=== PATIENT | female | born 1945 ===

== ENCOUNTER 2016-10-23 15:12 | Emergency (ER) | payer MEDICARE, MEDICAID ==
[2016-10-23 15:31] VITALS: BP 138/74; PULSE 82; TEMP 98.6
--- NOTE | 2016-10-23 15:45 | ED PDOC ---
Arrival/HPI - General Historian: Patient <Prisca Acharya A - Last Filed: 10/23/16 16:09> <Cornell Morales - Last Filed: 10/23/16 16:43> - General Chief Complaint: Hip Pain Time Seen by Provider: 10/23/16 15:24 - History of Present Illness Narrative History of Present Illness (Text): 10/23/16 15:42 71yo female with PMhx of hypertension, diabetes and hypercholestrol, right knee OA, present with complaint of right sided hip pain that radiates laterally to her lower leg x one week. the daughter by the bedside states patient was taking her regular 15mg Meloxicam without relieve. denies previous history of hip pain. denies trauma, saddle anesthesia, urinary/fecal incontinence, focal weakness, abdominal pain, urinary symptoms. (Prisca Acharya A) Past Medical History - Provider Review Nursing Documentation Reviewed: Yes - Cardiac Hx Hypertension: Yes - Pulmonary Hx Respiratory Disorders: No - Neurological Hx Neurological Disorder: No - HEENT Hx HEENT Disorder: No - Renal Hx Renal Disorder: No - Endocrine/Metabolic Hx Diabetes Mellitus Type 2: Yes Hx Hypothyroidism: Yes - Hematological/Oncological Hx Blood Disorders: No - Integumentary Hx Dermatological Disorder: No - Musculoskeletal/Rheumatological Hx Arthritis: Yes - Gastrointestinal Hx Gastrointestinal Disorders: No - Genitourinary/Gynecological Hx Genitourinary Disorders: No - Psychiatric Hx Psychophysiologic Disorder: No Hx Substance Use: No - Surgical History Other/Comment: CARDIAC CATH <Prisca Acharya - Last Filed: 10/23/16 16:09> Family/Social History - Physician Review Nursing Documentation Reviewed: Yes Family/Social History: Unknown Family HX Smoking Status: Never Smoked Hx Alcohol Use: Yes Frequency of alcohol use: Socially Hx Substance Use: No <Prisca Acharya - Last Filed: 10/23/16 16:09> Allergies/Home Meds <Prisca Acharya A - Last Filed: 10/23/16 16:09> <Cornell Morales - Last Filed: 10/23/16 16:43> Allergies/Adverse Reactions: Allergies No Known Allergies Allergy (Verified 10/23/16 15:21) Home Medications: Home Meds Medication Instructions Recorded Confirmed Cholecalciferol [Vitamin D 1000 IU] 1 tab PO DAILY 10/23/16 10/23/16 Glipizide [Glucotrol] 10 mg PO DAILY 10/23/16 10/23/16 Levocetirizine Dihydrochloride 5 mg PO DAILY 10/23/16 10/23/16 Levothyroxine [Synthroid] 150 mcg PO DAILY 10/23/16 10/23/16 Linagliptin [Tradjenta] 5 mg PO DAILY 10/23/16 10/23/16 Losartan [Cozaar] 25 mg PO DAILY 10/23/16 10/23/16 Meloxicam [Mobic] 15 mg PO DAILY 10/23/16 10/23/16 Timolol 0.25% Ophth [Timoptic 1 drop OD BID 10/23/16 10/23/16 0.25% Ophth Soln] Travoprost [Travatan Z] 1 drop OD BID 10/23/16 10/23/16 Review of Systems - Physician Review All systems were reviewed & negative as marked: Yes - Review of Systems Constitutional: Normal Eyes: Normal ENT: Normal Respiratory: Normal Cardiovascular: Normal Gastrointestinal: Normal Genitourinary Female: Normal Musculoskeletal: Arthralgias (Right hip pain) Skin: Normal Neurological: Normal Endocrine: Normal Hemo/Lymphatic: Normal Psychiatric: Normal <Diru,Happiness A - Last Filed: 10/23/16 16:09> Physical Exam Vital Signs Reviewed: Yes Temperature: Afebrile Blood Pressure: Normal Pulse: Regular Respiratory Rate: Normal Appearance: Positive for: Well-Appearing, Non-Toxic, Comfortable Pain Distress: None Mental Status: Positive for: Alert and Oriented X 3 - Systems Exam Head: Present: Atraumatic, Normocephalic Pupils: Present: PERRL Extroacular Muscles: Present: EOMI Conjunctiva: Present: Normal Mouth: Present: Moist Mucous Membranes Neck: Present: Normal Range of Motion Respiratory/Chest: Present: Clear to Auscultation, Good Air Exchange. No: Respiratory Distress, Accessory Muscle Use Cardiovascular: Present: Regular Rate and Rhythm, Normal S1, S2. No: Murmurs Abdomen: Present: Normal Bowel Sounds. No: Tenderness, Distention, Peritoneal Signs Back: Present: Normal Inspection Upper Extremity: Present: Normal Inspection. No: Cyanosis, Edema Lower Extremity: Present: NORMAL PULSES, Normal ROM (With pain with adduction/ abduction of right hip), Tenderness (Lateral right hip), Neurovascularly Intact. No: Edema, Swelling, Erythema, Deformity, Temperature Abnormalties Neurological: Present: GCS=15, CN II-XII Intact, Speech Normal Skin: Present: Warm, Dry, Normal Color. No: Rashes Psychiatric: Present: Alert, Oriented x 3, Normal Insight, Normal Concentration <Prisca Acharya A - Last Filed: 10/23/16 16:09> Medical Decision Making <Prisca Acharya - Last Filed: 10/23/16 16:09> <Cornell Morales - Last Filed: 10/23/16 16:43> ED Course and Treatment: 10/23/16 16:12 Hip xray - DJD. No acute fracture noted Resutl was DW both pt and the daughter. Her pain improved slightly in ED with medication. she was ambulatory with a cane in ED. DC home with a rx of Tylenol # 3. referred to ortho. TRT ED for any new or worsening symptoms. (Prisca Acharya A) - RAD Interpretation Radiology Orders: 10/23/16 15:41 Hip Bilateral [HIP MIN 3V W/ PELVIS GRACE] [RAD] Stat - Medication Orders Current Medication Orders: Discontinued Medications Tramadol HCl (Ultram) 50 mg PO STAT STA Stop: 10/23/16 15:42 Last Admin: 10/23/16 16:08 Dose: 50 mg - PA / INCLUSION INTERNSHIP / Resident Statement / has reviewed & agrees with the documentation as recorded. <Cornell Morales - Last Filed: 10/23/16 16:43> Disposition/Present on Arrival - Present on Arrival Any Indicators Present on Arrival: No History of DVT/PE: No History of Uncontrolled Diabetes: No Urinary Catheter: No History of Decub. Ulcer: No History Surgical Site Infection Following: None - Disposition Have Diagnosis and Disposition been Completed?: Yes Disposition Time: 16:10 Patient Plan: Discharge <Prisca Acharya A - Last Filed: 10/23/16 16:09> <Cornell oMrales - Last Filed: 10/23/16 16:43> - Disposition Diagnosis: Hip pain Disposition: HOME/ ROUTINE Condition: STABLE Discharge Instructions (ExitCare): Hip Pain (ED) Additional Instructions: Follow up with your Doctor/Orthopedist Return to ED for any new or worsening symptoms Prescriptions: Acetaminophen with Codeine [Tylenol with Codeine No. 3 300 mg-30 mg] 1 tab PO Q6 #9 tab Referrals: Grayson Garcia MD [Staff Provider] - Follow up with primary
[2016-10-23 16:30] VITALS: RESP 16; O2SAT 99
--- NOTE | 2016-10-23 16:45 | RAD ---
PROCEDURE: No pelvis bilateral hips HISTORY: right hip Pain. No history of recent/ related trauma provided COMPARISON: None TECHNIQUE: Standard protocol for this study/examination. FINDINGS: There are no osseous abnormalities to suggest fracture. The pelvic ring is intact. Preserved femoral-acetabular relationship. Negative study for protrusio, subluxation or dislocation. Degenerative changes: None. IMPRESSION: No significant or acute findings to account for/ related to the clinical presentation.
== END 2016-10-23 16:20 | disposition home or self-care (01) ==
LOC: ED 15:12 → MERGE 15:12 → ED 16:20
DX: M25.551 Pain in right hip (principal); E11.9 Type 2 diabetes mellitus without complications; I10 Essential (primary) hypertension